=== PATIENT | male | born 1990 | race Caucasian/White ===

== ENCOUNTER 2019-08-25 14:56 | Emergency (ER) | payer SELFPAY ==
[~2019-08-25] VITALS: Ht 180.3 cm; Wt 83.9 kg
--- NOTE | 2019-08-25 14:56 | NUR ---
PT TAKEN TO BED 12.
--- NOTE | 2019-08-25 15:00 | NUR ---
Shirley bender in [facility] - 08/25/19 at 1552 by [email or web address] CAPRI GIBSON BEDSIDE
[2019-08-25 15:04] VITALS: BP 136/77
--- NOTE | 2019-08-25 15:05 | NUR ---
PATIENT WAS MOVING FURNITURE APPROX 45 MINS AGO, RECEIVED A LACERATION TO HIS LEFT FOREARM BY A PIECE OF WOODEN FURNITURE. BLEEDING CONTROLLED AT THIS TIME. PA CURRENTLY AT BEDSIDE ASSESSING LAC. PATIENT ABLE TO MOVE FINGERS AND REGULAR +2 RADIAL PULSE
--- NOTE | 2019-08-25 15:10 | NUR ---
SUTURE SET UP AT BEDSIDE
--- NOTE | 2019-08-25 15:15 | NUR ---
CAPRI HAGEN SUTURING AT BEDSIDE.
[2019-08-25] MEDS: LIDOCAINE MPF 1% 10 MG/ML VIAL INJ ONE (15:31)
[2019-08-25] MEDS: IBUPROFEN 600 MG TAB PO ONE (15:44)
--- NOTE | 2019-08-25 15:46 | NUR ---
Shirley bender in [facility] - 08/25/19 at 1547 by [email or web address] Lizzie GIBSON BEDSIDE
[2019-08-25 16:22] VITALS: BP 136/77
--- NOTE | 2019-08-25 16:25 | NUR ---
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
== END 2019-08-25 16:22 | disposition home or self-care (01) ==
LOC: MED 14:56
DX: S51.812A Laceration without foreign body of left forearm, initial encounter (principal); R03.0 Elevated blood-pressure reading, without diagnosis of hypertension; W26.8XXA Contact with other sharp object(s), not elsewhere classified, initial encounter; Y93.89 Activity, other specified; Y92.89 Other specified places as the place of occurrence of the external cause; Y99.8 Other external cause status
CPT/HCPCS: 12002; 90471; 90715; 99283; J2001

== ENCOUNTER 2019-09-06 10:49 | Emergency (ER) | payer SELFPAY ==
[~2019-09-06] VITALS: Ht 170.2 cm; Wt 70.3 kg
[2019-09-06 10:56] VITALS: BP 140/77
--- NOTE | 2019-09-06 11:00 | NUR ---
PT COMING IN TODAY FOR SUTURE REMOVAL THAT WAS DONE HERE 1 WEEK AGO. PT HAS 4 SUTURES TO LEFT FOREARM. SKIN IS INTACT NO REDNESS SWELLING DRAINAGE OR DISCHARGE AND PT DENIES PAIN. PT DID RECEIVE TETNAUS VACCINE WHEN SITE WAS SUTURED. PT SITTING IN CHAIR AT BEDSIDE
--- NOTE | 2019-09-06 11:03 | NUR ---
Dr. Ferrari is evaluating the patient at bedside.
[2019-09-06] MEDS ORDERED: BACITRACIN OINT 500 UNITS/GM PKT TP ONE (11:10)
--- NOTE | 2019-09-06 11:18 | NUR ---
EMT AT BEDSIDE APPLYING BACITRACIN AND BANDAID
--- NOTE | 2019-09-06 11:19 | NUR ---
applied bacitracin and applied dressing without any issues
--- NOTE | 2019-09-06 11:20 | NUR ---
Patient discharged with v/s stable. Written and verbal after care instructions given and explained. Patient verbalized understanding. Ambulatory with steady gait. All questions addressed prior to discharge. Advised to follow up with PMD.
[2019-09-06 11:21] VITALS: BP 140/77
== END 2019-09-06 11:20 | disposition home or self-care (01) ==
LOC: MED 10:49
DX: S51.811D Laceration without foreign body of right forearm, subsequent encounter (principal); X58.XXXD Exposure to other specified factors, subsequent encounter
CPT/HCPCS: 99282

== ENCOUNTER 2020-03-14 16:12 | Emergency (ER) | payer MEDICAID ==
[~2020-03-14] VITALS: Ht 180.3 cm; Wt 94.3 kg
[2020-03-14 16:17] VITALS: BP 123/66
[2020-03-14] MEDS: LIDOCAINE 2% 1000 MG/50 ML VIAL INJ ONE (16:40)
[2020-03-14 16:59] VITALS: BP 123/66
== END 2020-03-14 16:59 | disposition home or self-care (01) ==
LOC: MED 16:12
DX: S81.011A Laceration without foreign body, right knee, initial encounter (principal); W25.XXXA Contact with sharp glass, initial encounter; Y93.89 Activity, other specified; Y92.89 Other specified places as the place of occurrence of the external cause; Y99.8 Other external cause status
CPT/HCPCS: 12002; 99282; J2001